=== PATIENT | female | born 1955 | race Caucasian/White ===

== ENCOUNTER 2017-06-03 21:25 | Inpatient (IN) | payer MEDICARE, OTHER ==
[~2017-06-03] VITALS: Ht 160 cm; Wt 62.6 kg
[2017-06-03 21:59] LABS: BASOPHILS # (AUTO) 0.1 K/uL (0.0-8.0); BASOPHILS % (AUTO) 1.3 % (0.0-2.0); EOSINOPHILS # (AUTO) 0.3 K/uL (0.0-0.7); HEMATOCRIT 35.9 % (31.2-41.9); HEMOGLOBIN 12.5 g/dL (10.9-14.3); LYMPHOCYTES # (AUTO) 1.8 K/uL (20.0-40.0); LYMPHOCYTES % (AUTO) 19.4 % (20.5-51.5); MEAN CORPUSCULAR HGB CONC 35 g/dL (32.3-35.6); MEAN CORPUSCULAR VOLUME 85.8 fL (75.5-95.3); MONOCYTES # (AUTO) 0.7 K/uL (2.0-10.0); MONOCYTES % (AUTO) 7.1 % (0.0-11.0); NEUTROPHILS # (AUTO) 6.3 K/uL (1.8-8.9); NEUTROPHILS % (AUTO) 69.2 % (38.5-71.5); PLATELET COUNT (AUTO) 293 K/uL (179-408); RED BLOOD CELL COUNT(AUTO) 4.18 MIL/uL (3.63-4.92); WHITE BLOOD COUNT (AUTO) 9.1 K/uL (3.8-11.8)
[2017-06-03] MEDS ORDERED: SODI100010 PO (22:03)
[2017-06-03] MEDS ORDERED: AMLO5TAB2 PO (22:03)
[2017-06-03] MEDS ORDERED: FERR325T24 PO (22:03)
[2017-06-03] MEDS ORDERED: PANT40TA2 PO (22:03)
[2017-06-03] MEDS ORDERED: MULT-213 PO (22:04)
[2017-06-03] MEDS ORDERED: ACET325T53 PO (22:04)
[2017-06-03] MEDS ORDERED: SENN-167 PO (22:04)
[2017-06-03] MEDS ORDERED: OLAN15TA3 PO (22:04)
[2017-06-03] MEDS ORDERED: BISA10SU12 RC (22:04)
[2017-06-03] MEDS ORDERED: LEVO100T10 PO (22:04)
[2017-06-03] MEDS ORDERED: DIVA500T4 PO (22:04)
[2017-06-03] MEDS ORDERED: LEVE500T9 PO (22:04)
[2017-06-03] MEDS ORDERED: NA P133E RC (22:04)
[2017-06-03] MEDS ORDERED: HYDR-3326 PO (22:04)
[2017-06-03] MEDS ORDERED: DOCU100T2 PO (22:04)
[2017-06-03] MEDS ORDERED: ASCO500T9 PO (22:04)
[2017-06-03] MEDS ORDERED: MAGN400O6 PO (22:04)
[2017-06-03] MEDS ORDERED: METF500T6 PO (22:04)
[2017-06-03] MEDS ORDERED: LISI-603 PO (22:04)
[2017-06-03] MEDS ORDERED: BLOO-140 IN (22:04)
[2017-06-03 22:06] LABS: *AMPHETAMINE, URINE NEGATIVE (NEGATIVE); *BARBITURATE, URINE NEGATIVE (NEGATIVE); *CANNABINOID, URINE NEGATIVE (NEGATIVE); *COCCAINE, URINE NEGATIVE (NEGATIVE); *OPIATE, URINE NEGATIVE (NEGATIVE); *PHENCYCLIDINE SCREEN,URINE NEGATIVE (NEGATIVE)
[2017-06-03 22:21] LABS: ETHANOL < 3 MG/DL (0-0)
[2017-06-03 22:27] LABS: ALANINE AMINOTRANSFERASE 14 U/L (14-59); ALKALINE PHOSPHATASE 125 U/L (50-136); ASPARTATE AMINOTRANSFERASE 10 U/L (15-37); BILIRUBIN,DIRECT 0.1 mg/dL (0.0-0.2); BILIRUBIN,TOTAL 0.3 mg/dL (0.2-1.0); CARBON DIOXIDE 28 mmol/L (21-32); CHLORIDE 95 mmol/L (98-107); CREATININE 0.7 mg/dL (0.6-1.3); GLUCOSE 98 mg/dL (74-106); POTASSIUM 4.1 mmol/L (3.5-5.1)
[2017-06-03 22:28] LABS: ACETAMINOPHEN < 2.0 ug/mL (10-30)
[2017-06-03 22:32] LABS: THYROID STIMULATING HORMONE 11.699 mIU/mL (0.358-3.740)
[2017-06-03 22:35] LABS: UREA NITROGEN, BLOOD 14 mg/dL (7-18)
[2017-06-03] MEDS ORDERED: OLANZAPINE 5 MG TABLET PO ONE (23:00)
[2017-06-03] MEDS ORDERED: OLANZAPINE 5 MG TABLET ONE (23:01)
--- NOTE | 2017-06-03 23:08 | NUR ---
PT IN BED WATCHING TV. PT GETTING AGITATED BECAUSE WE HAVE NO CIGARETTES OR "SMOKING BREAKS." PT HAS HAD TO BE REDIRECTED BACK TO BED SEVERAL TIMES. MADE AWARE. AT THIS TIME PT HAS BEEN MEDICALLY CLEARED. CURRENTLY WAITING FOR PSYCH EVAL.
--- NOTE | 2017-06-03 23:24 | NUR ---
MERCERIZER AT BEDSIDE CONDUCTING PSYCH EVAL
--- NOTE | 2017-06-04 00:05 | NUR ---
PT IN BED. PT CRYING AND SCREAMING "DADDY" REPEATEDLY. MADE AWARE.
[2017-06-04] MEDS ORDERED: LORAZEPAM 2 MG/1 ML VIAL IM ONE ×3 (00:15→11:30)
[2017-06-04] MEDS ORDERED: LORAZEPAM 2 MG/1 ML VIAL ONE (00:16)
[2017-06-04 01:00] VITALS: BP 97/62
[2017-06-04] MEDS ORDERED: HYDROCODONE/APAP 5-325MG TABLET PO PRN (01:00)
[2017-06-04] MEDS ORDERED: FLEET ENEMA 133 ML BOTTLE RC PRN (01:00)
--- NOTE | 2017-06-04 01:15 | NUR ---
Pt. admitted to MHU overflow, under care of Dr. GAMING/BALAJI Bradley List completed MRSA done Physician's Order Sheet done
[2017-06-04] MEDS ORDERED: HALOPERIDOL LACTATE 5 MG/1 ML VIAL IM ONE (01:45)
[2017-06-04] MEDS ORDERED: diphenhydrAMINE 50 MG/1 ML VIAL IM ONE (01:45)
[2017-06-04] MEDS ORDERED: MAG HYDROX/AL HYDROX/SIMETH 30 ML LIQUID UDC PO PRN (02:00)
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
[2017-06-04] MEDS: LEVOTHYROXINE SODIUM 100 MCG TABLET PO SCH ×2 (06:52→07:30)
[2017-06-04] MEDS: PANTOPRAZOLE SODIUM 40 MG TABLET.DR PO SCH ×2 (06:52→07:30)
--- NOTE | 2017-06-04 06:52 | NUR ---
Protonix and Levothyroxine given as ordered.
[2017-06-04] MEDS: SODIUM CHLORIDE 1,000 MG TABLET PO SCH ×3 (08:32→17:56)
[2017-06-04] MEDS: AMLODIPINE 5 MG TABLET PO SCH (08:32)
[2017-06-04] MEDS: METFORMIN HCL 500 MG TABLET PO SCH ×2 (08:32→17:32)
[2017-06-04] MEDS: LEVETIRACETAM 500 MG TABLET PO SCH ×2 (08:32→17:32)
[2017-06-04] MEDS: CLONAZEPAM 0.5 MG TABLET PO PRN (08:32)
[2017-06-04] MEDS: FERROUS SULFATE 325 MG TABEC PO SCH (08:33)
[2017-06-04] MEDS: LISINOPRIL 20 MG TABLET PO SCH (08:33)
[2017-06-04] MEDS ORDERED: NICOTINE 14 MG/24HR PATCH TD SCH (09:00)
[2017-06-04] MEDS ORDERED: PANTOPRAZOLE SODIUM 40 MG TABLET.DR PO SCH (09:00)
[2017-06-04] MEDS ORDERED: LEVOTHYROXINE SODIUM 100 MCG TABLET PO SCH (09:00)
--- NOTE | 2017-06-04 10:30 | NUR ---
Patient was noted screaming at staff, asking to go out and smoke, patient laying on the floor and naked. PRN Klonopin was given at 0832, no other PRN anti anxiety ordered. Dr. Bell in the unit, made him aware. Dr. Coley was called, left a message. Awaiting for call back. Will continue to monitor.
[2017-06-04 10:52] VITALS: BP 120/72
[2017-06-04] MEDS ORDERED: OLANZAPINE 10 MG VIAL IM ONE (11:30)
--- NOTE | 2017-06-04 11:30 | NUR ---
Dr. Coley was called and notified of patient's worsening behavior, screaming, yelling and laying on the floor naked, received orders to give x1 Ativan 1mg IM and Zyprexa 5mg IM x1, noted and carried out.
[2017-06-04 12:34] LABS: *BILIRUBIN,URIN NEGATIVE (NEGATIVE); *BLOOD, URINE NEGATIVE (NEGATIVE); *CLARITY,URINE CLEAR (CLEAR); *COLOR,URINE YELLOW (YELLOW); *KETONES,URINE NEGATIVE (NEGATIVE); *PROTEIN,URINE NEGATIVE (NEGATIVE); *UROBILINOGEN,URINE 0.2 E.U./dl (NORMAL); LEUKOCYTE ESTERASE ,URINE NEGATIVE (NEGATIVE); NITRITE, URINE NEGATIVE (NEGATIVE); UGLUCOSE NEGATIVE (NEGATIVE)
[2017-06-04 13:31] LABS: BACTERIA,URINE NONE SEEN /HPF (NONE SEEN); RBC,URINE 0-3 /HPF (0-3); SQUAMOUS EPITHELIAL CELL,UR FEW /HPF (NONE SEEN); WBC,URINE 0-3 /HPF (0-3)
--- NOTE | 2017-06-04 14:20 | NUR ---
Patient was transferred to MHU, room 139-A, via wheelchair, in stable condition. Patient is calm and cooperative at the moment. Report given to RADHA Carter.
--- NOTE | 2017-06-04 14:30 | NUR ---
Rec'd pt up in w/c, awake, A&O x1. Able to verbalize simple needs. Repeatedly asking to go smoke outside. Reoriented pt on facility rules and privileges. Pt would verbalize understanding but then forget and ask again to smoke outside repeatedly. 1:1 sitter at side for safety. VS: 98.4 78 20 113/67 0/10. On RA, no SOB noted. Oriented pt to the unit, her room, and her roommate. Agreeable at this time. Cooperative at this time. Will continue to monitor for change.
[2017-06-04] MEDS: DIVALPROEX 500 MG TABLET.DR PO SCH (17:32)
[2017-06-04] MEDS: OLANZAPINE 5 MG TABLET PO SCH (17:32)
[2017-06-04 20:21] VITALS: BP 101/61
[2017-06-04] MEDS: SENNOSIDES 1 TABLET PO SCH (21:07)
[2017-06-04] MEDS: TEMAZEPAM 7.5 MG CAPSULE PO PRN (21:10)
--- NOTE | 2017-06-04 23:00 | NUR ---
RECEIVED Pt IN BED, SLEEPING BUT EASY TO AROUSE. Pt HAS A 1:1 SITTER AT BEDSIDE FOR SAFETY. Pt RESPONSES TO NAME BUT IS FORGETFUL AND SLIGHTLY CONFUSED. COMPLIANT WITH CARE STAFF AND TOOK NIGHT MEDS. Pt WAS SLEEPY AND DID NOT WANT TO ANSWER TOO MANY QUESTIONS. Pt REQUESTED AND WAS GIVEN RESTORIL PO PRN. WILL CONTINUE TO CLOSELY MONITOR Pt BEHAVIOR THROUGHOUT SHIFT.
[2017-06-05] MEDS: PANTOPRAZOLE SODIUM 40 MG TABLET.DR PO SCH (06:37)
[2017-06-05] MEDS: LEVOTHYROXINE SODIUM 100 MCG TABLET PO SCH (06:37)
--- NOTE | 2017-06-05 06:50 | NUR ---
Pt slept throughout the shift. Shows no signs of distress. Prescribed medication given and pt tolerated it well. Sitter at bedside. Safety and comfort provided. All needs are met. Will endorse to dayshift nurse to closely monitor the patients behavior.
[2017-06-05 07:30] VITALS: BP 96/66
[2017-06-05] MEDS ORDERED: NICOTINE 14 MG/24HR PATCH TD SCH (09:00)
[2017-06-05] MEDS: NICOTINE 21 MG/24HR PATCH TD SCH (09:00)
[2017-06-05] MEDS: AMLODIPINE 5 MG TABLET PO SCH (09:00)
[2017-06-05] MEDS: LISINOPRIL 20 MG TABLET PO SCH (09:00)
[2017-06-05] MEDS: FERROUS SULFATE 325 MG TABEC PO SCH (09:00)
--- NOTE | 2017-06-05 09:00 | NUR ---
LISINOPRIL AND AMLODIPINE HELD. BP 94/63. CONTINUE TO MONITOR PT.
[2017-06-05] MEDS: DIVALPROEX 500 MG TABLET.DR PO SCH ×3 (09:34→16:04)
[2017-06-05] MEDS: OLANZAPINE 5 MG TABLET PO SCH ×2 (09:34→16:04)
[2017-06-05] MEDS: METFORMIN HCL 500 MG TABLET PO SCH ×2 (09:34→16:04)
[2017-06-05] MEDS: SODIUM CHLORIDE 1,000 MG TABLET PO SCH ×3 (09:34→16:05)
[2017-06-05] MEDS: LEVETIRACETAM 500 MG TABLET PO SCH ×2 (09:35→16:04)
[2017-06-05 15:17] VITALS: BP 101/56
[2017-06-05] MEDS: SENNOSIDES 1 TABLET PO SCH (20:31)
[2017-06-05 20:54] VITALS: BP 104/61
--- NOTE | 2017-06-05 21:52 | NUR ---
RECEIVED PT SITTING UP IN HER WHEELCHAIR IN THE DAY ROOM. SHE IS NOTED A/O X 1. ABLE TO MAKE HER NEEDS KNOWN. PLEASANT AND COOPERATIVE AT THIS TIME. DENIES SI/HI. DENIES VA/AH. POOR INSIGHT INTO THE REASON FOR HER ADMISSION TO MHU. SAFETY EMPHASIS. ROOM FREE FROM CLUTTER, WELL LIT AND FREQUENT HEAD CHECKS. WILL CONTINUE TO MONITOR.
[2017-06-05] MEDS: TEMAZEPAM 7.5 MG CAPSULE PO PRN (23:05)
--- NOTE | 2017-06-05 23:05 | NUR ---
PATIENT NOTED AWAKE IN THE DAY ROOM. SHE REQUESTED A "SLEEPING PILL." RESTORIL 7.5MG PO PRN WAS GIVEN FOR INSOMNIA PER NURSE ASSESSMENT AND PATIENT REQUEST. WILL CONTINUE TO MONITOR CLOSELY.
[2017-06-05 23:11] VITALS: BP 128/88
--- NOTE | 2017-06-06 00:30 | NUR ---
PATIENT NOTED ASLEEP IN HER BED. WILL CONTINUE TO MONITOR
[2017-06-06] MEDS: PANTOPRAZOLE SODIUM 40 MG TABLET.DR PO SCH (06:33)
[2017-06-06] MEDS: LEVOTHYROXINE SODIUM 100 MCG TABLET PO SCH (06:33)
[2017-06-06 07:30] VITALS: BP 93/63
[2017-06-06] MEDS: LISINOPRIL 20 MG TABLET PO SCH (09:00)
[2017-06-06] MEDS: LEVETIRACETAM 500 MG TABLET PO SCH ×2 (09:00→17:42)
[2017-06-06] MEDS: FERROUS SULFATE 325 MG TABEC PO SCH ×2 (09:00→09:18)
[2017-06-06] MEDS: AMLODIPINE 5 MG TABLET PO SCH (09:00)
[2017-06-06] MEDS: SODIUM CHLORIDE 1,000 MG TABLET PO SCH ×3 (09:17→17:43)
[2017-06-06] MEDS: CLONAZEPAM 0.5 MG TABLET PO PRN ×2 (09:17→20:06)
[2017-06-06] MEDS: OLANZAPINE 5 MG TABLET PO SCH ×2 (09:17→17:42)
[2017-06-06] MEDS: METFORMIN HCL 500 MG TABLET PO SCH ×2 (09:18→17:42)
[2017-06-06] MEDS: DIVALPROEX 500 MG TABLET.DR PO SCH ×3 (09:18→17:41)
[2017-06-06] MEDS: NICOTINE 21 MG/24HR PATCH TD SCH (09:21)
[2017-06-06 14:51] VITALS: BP 110/78
--- NOTE | 2017-06-06 15:04 | NUR ---
PATIENT VERY CONFUSED AND PARANOID PATIENT IS REDIECTABLE POOR INSIGHT AND NO PLAN DOES SHE HAVE
[2017-06-06] MEDS: MAGNESIUM HYDROXIDE 30 ML LIQUID UDC PO PRN (17:47)
[2017-06-06 20:00] VITALS: BP 135/90
[2017-06-06] MEDS: SENNOSIDES 1 TABLET PO SCH (20:06)
--- NOTE | 2017-06-06 20:15 | NUR ---
PATIENT NOTED ANXIOUS HYPERVERBAL, FIXED ON TALKING TO THE MAN WHO IS GOING TO DISCHARGE HER.. MULTIPLE REDIRECTION GIVEN. KLONOPIN 0.5MG PO PRN WAS GIVEN. WILL CONTINUE TO MONITOR.
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
[2017-06-06] MEDS: TEMAZEPAM 7.5 MG CAPSULE PO PRN (21:23)
--- NOTE | 2017-06-06 21:30 | NUR ---
PATIENT NOTED LESS ANXIOUS, HOWEVER, UNABLE TO FALL SLEEP. RESTORIL 7.5MG PO PRN WAS GIVEN FOR INSOMNIA. WILL CONTINUE TO MONITOR CLOSELY.
--- NOTE | 2017-06-07 05:54 | NUR ---
PATIENT SLEPT FOR APPROX 6HRS THROUGH THE NIGHT. SHE IS NOTED LESS PREOCCUPIED ABOUT HER DISCHARGED. CONTINUE COMPLIANT WITH MEDICATION REGIMENT.
[2017-06-07] MEDS: LEVOTHYROXINE SODIUM 100 MCG TABLET PO SCH (06:42)
[2017-06-07] MEDS: PANTOPRAZOLE SODIUM 40 MG TABLET.DR PO SCH (06:42)
[2017-06-07 07:30] VITALS: BP 133/74
[2017-06-07] MEDS: SODIUM CHLORIDE 1,000 MG TABLET PO SCH ×3 (08:02→16:24)
[2017-06-07] MEDS: NICOTINE 21 MG/24HR PATCH TD SCH (08:03)
[2017-06-07] MEDS: METFORMIN HCL 500 MG TABLET PO SCH ×2 (08:03→16:22)
[2017-06-07] MEDS: FERROUS SULFATE 325 MG TABEC PO SCH ×2 (08:03→08:13)
[2017-06-07] MEDS: OLANZAPINE 5 MG TABLET PO SCH ×2 (08:03→16:22)
[2017-06-07] MEDS: DIVALPROEX 500 MG TABLET.DR PO SCH ×3 (08:03→16:22)
[2017-06-07] MEDS: LEVETIRACETAM 500 MG TABLET PO SCH ×2 (08:03→16:22)
[2017-06-07] MEDS: LISINOPRIL 20 MG TABLET PO SCH (08:04)
[2017-06-07] MEDS: AMLODIPINE 5 MG TABLET PO SCH (08:04)
--- NOTE | 2017-06-07 08:13 | NUR ---
PATIENT ALLOWED THE PLACEMENT OF NICOTINE PATCH HOWEVER STATES SHE HAS NO INTENTION TO QUIT SMOKING.
--- NOTE | 2017-06-07 08:13 | NUR ---
PATIENT REFUSED IRON MEDICATION. STATES THAT IT CONSTIPATES HER. OFFERED MOM FOR CONSTIPATION WITH MEDICATION. SHE STILL REFUSED MEDICATION
--- NOTE | 2017-06-07 08:23 | NUR ---
PATIENT GOING OUT TO THE ACTIVITY ROOM IN WHEELCHAIR. BREAKFAST WAS EATEN IN ROOM.
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
--- NOTE | 2017-06-07 12:19 | NUR ---
Initial DC Plan: Patient currently resides at [facility] [[address] [place] [address]; ]. TRICIA spoke with Humberto from [facility] who stated patient can return to the facility upon discharge. SW will follow up with MD and patient to discuss most appropriate discharge plans. SW will form a safe and proper discharge.
--- NOTE | 2017-06-07 12:29 | NUR ---
Firearms Reporting: TRICIA submitted Mental Health Report to [facility] on 06/07.
--- NOTE | 2017-06-07 12:45 | NUR ---
ONLY ATE JELLO FROM HER LUNCH TRAY. DID NOT WANT THE REST OF THE MEAL. OFFERED IF SHE WANTED TO ORDER SOMETHING ELSE TO EAT SHE SAID NO JUST THAT SHE WANTED SOME TEA OR LEMON JUICE.
[2017-06-07 15:16] VITALS: BP 109/73
--- NOTE | 2017-06-07 20:00 | NUR ---
RECEIVED PT.UP IN WHEEL CHAIR, SLIGHTLY ANXIOUS. TALKED & REDIRECTED PT.WANTS HER SLEEPING EARLY.
[2017-06-07 21:01] VITALS: BP 97/74
[2017-06-07] MEDS: TEMAZEPAM 7.5 MG CAPSULE PO PRN (21:09)
[2017-06-07] MEDS: SENNOSIDES 1 TABLET PO SCH (21:09)
[2017-06-07] MEDS: ACETAMINOPHEN 325 MG TABLET PO PRN (21:11)
--- NOTE | 2017-06-08 06:30 | NUR ---
PT. SLEPT APPROX 5HRS. UP IN THE HALLWAY ON WHEELCHAIR. PT. SEEMS PLEASANT THIS TIME.
[2017-06-08] MEDS: PANTOPRAZOLE SODIUM 40 MG TABLET.DR PO SCH (06:45)
[2017-06-08] MEDS: LEVOTHYROXINE SODIUM 100 MCG TABLET PO SCH (06:45)
[2017-06-08 07:30] VITALS: BP 110/67
--- NOTE | 2017-06-08 07:41 | NUR ---
PATIENT IS WANDERING IN HALLWAY IN HER WHEELCHAIR.
[2017-06-08] MEDS: DIVALPROEX 500 MG TABLET.DR PO SCH ×3 (08:05→16:12)
[2017-06-08] MEDS: SODIUM CHLORIDE 1,000 MG TABLET PO SCH ×3 (08:05→16:11)
[2017-06-08] MEDS: LEVETIRACETAM 500 MG TABLET PO SCH ×2 (08:06→16:12)
[2017-06-08] MEDS: NICOTINE 21 MG/24HR PATCH TD SCH (08:06)
[2017-06-08] MEDS: OLANZAPINE 5 MG TABLET PO SCH ×2 (08:06→16:12)
[2017-06-08] MEDS: METFORMIN HCL 500 MG TABLET PO SCH ×2 (08:06→16:11)
[2017-06-08] MEDS: LISINOPRIL 20 MG TABLET PO SCH (08:07)
[2017-06-08] MEDS: AMLODIPINE 5 MG TABLET PO SCH (08:07)
[2017-06-08] MEDS: FERROUS SULFATE 325 MG TABEC PO SCH ×2 (08:07→08:17)
--- NOTE | 2017-06-08 08:50 | NUR ---
PATIENT WAS BECOMING AGITATED AND WHEN SOFT WORK WRAPPER EXAMINER MENTIONED SHE IS WORKING ON GETTING HER HOME SHE BECAME HAPPY STOPPED CRYING AND REPEATEDLY ASKING WHEN SHE WAS GOING TO GO HOME.
--- NOTE | 2017-06-08 08:54 | NUR ---
DC Note: Patient will be discharged to [facility] ([facility] ([place], [place] [ [address] [place] [address]; ] via ambulance. TRICIA spoke with Humberto from [facility] to confirm discharge plans. Patient is aware and agreeable to discharge plans. Patient does not have family or friends to contact regarding discharge plans. Patient will follow up with Dr. Noel (Manufacturing Engineering Technician) and Dr. Rosa (Psychiatrist) at the facility. Patient was provided smoking cessation referrals for [employer] [facility] [employer] [phone] and [employer] [phone].
[2017-06-08] MEDS: CLONAZEPAM 0.5 MG TABLET PO PRN ×2 (10:15→17:09)
[2017-06-08 15:00] VITALS: BP 110/64
[2017-06-08] MEDS: MAGNESIUM HYDROXIDE 30 ML LIQUID UDC PO PRN (17:57)
--- NOTE | 2017-06-08 19:35 | NUR ---
PER REPORT, FROM DAYSHIFT, PT IS SCHEDULED TO BE PICKED UP BY AMBULANCE AT 1930.
--- NOTE | 2017-06-08 19:40 | NUR ---
pt at the nursing station, anxious, asking what time she is leaving and why the transportation to the new facility has not arrived. I Called the ambulance to follow up with the ETA, per ambulance staff, #[phone] was placed on by RADHA HORAN day shift. The current ETA IS 2300 PER Ambulance staff.
--- NOTE | 2017-06-08 19:45 | NUR ---
I CALLED [facility] AND SPOKE TO JAZLYN, RN [phone] WHO IS AWARE AND EXPECTING THE PT, PER JAZLYN, ''THEY WILL NOT ACCEPT THE PT AFTER 2100- ACCORDING TO HIS DON BECAUSE THEY DO NOT HAVE RN 24 HOURS AND ALSO MEDICATION AVAILABILITY". I CALLED AND LEFT MESSAGE FOR MECCA KIRK LCSW. WAITING FOR A CALL BACK. ALSO CALLED BENJAMIN JAIRON HARRIS TO LET HER KNOW THE CURRENT SITUATION.
[2017-06-08 20:00] VITALS: BP 111/75
[2017-06-08] MEDS: SENNOSIDES 1 TABLET PO SCH (20:17)
[2017-06-08] MEDS: TEMAZEPAM 7.5 MG CAPSULE PO PRN (21:06)
[2017-06-08] MEDS: ACETAMINOPHEN 325 MG TABLET PO PRN (21:06)
--- NOTE | 2017-06-08 21:07 | NUR ---
GPS: PATIENT C/O INSOMNIA. RESTORIL 7.5 MG PO GIVEN.
--- NOTE | 2017-06-08 21:07 | NUR ---
GPS: PATIENT C/O GEN: PAIN.TYLENOL 650 MG PO GIVEN.
--- NOTE | 2017-06-08 21:08 | NUR ---
GPS: PATIENT C/O GEN: PAIN.TYLENOL 650 MG PO GIVEN FOR PAIN.
--- NOTE | 2017-06-08 21:15 | NUR ---
[facility]SP[facility] OUTSIDE THE UNIT TO TRANSPORT PT TO [facility]. I CALLED THE FACILITY TO CHECK IF THEY CAN STILL ACCEPT THE PT TONIGHT AFTER 2100, PER YSSA CHARGE NURSE AT [facility], " THEY CANNOT PER THEIR DON INSTRUCTION", BUT WILL TAKE THE PT TOMORROW MORNING. WENT OUTSIDE TO TALK TO THE TRANSPORT AGENTS THAT WE WILL RESCHEDULE FOR ADALBERTO MORNING. BOTH KIMBERLY DE LA O AND JOSE LUIS CARRERA DIRCTOR AWARE. DR GAMING ALSO NOTIFIED.
--- NOTE | 2017-06-08 21:35 | NUR ---
CALLED [phone] AND SPOKE TO ZULEIMA TO RESCHEDULE TO [facility] AT 9-9:30 AM , 06/09/17, SUNDAY MORNING, TRIP #[id number].
--- NOTE | 2017-06-08 22:07 | NUR ---
GPS: PATIENT IS SLEEPING EYE CLOSE. PRN EFFECTIVE.
--- NOTE | 2017-06-08 22:07 | NUR ---
GPS: PATIENT STATED I AM FEELING BETTER NOW. PRN EFFECTIVE FOR PAIN.
--- NOTE | 2017-06-09 06:19 | NUR ---
GPS: REMAIN CALM AND COOPERATIVE WITH MEDICATIONS AND CARE. SLEPT 7:30 HRS THROUGH THE NIGHT.NO AGITATION NOTED AT THIS TIME. PATIENT ABLE TO TRANSFER HER SELF FROM BED W/C.CONTINUE MONITORING FOR SAFETY.
[2017-06-09] MEDS: LEVOTHYROXINE SODIUM 100 MCG TABLET PO SCH (06:35)
[2017-06-09] MEDS: PANTOPRAZOLE SODIUM 40 MG TABLET.DR PO SCH (06:35)
[2017-06-09 07:30] VITALS: BP 116/71
[2017-06-09] MEDS: FERROUS SULFATE 325 MG TABEC PO SCH (08:12)
[2017-06-09] MEDS: LEVETIRACETAM 500 MG TABLET PO SCH (08:12)
[2017-06-09] MEDS: LISINOPRIL 20 MG TABLET PO SCH (08:12)
[2017-06-09] MEDS: DIVALPROEX 500 MG TABLET.DR PO SCH (08:12)
[2017-06-09 08:13] VITALS: BP 116/71
[2017-06-09] MEDS: METFORMIN HCL 500 MG TABLET PO SCH (08:13)
[2017-06-09] MEDS: SODIUM CHLORIDE 1,000 MG TABLET PO SCH (08:13)
[2017-06-09] MEDS: AMLODIPINE 5 MG TABLET PO SCH (08:13)
[2017-06-09] MEDS: OLANZAPINE 5 MG TABLET PO SCH (08:13)
[2017-06-09] MEDS: NICOTINE 21 MG/24HR PATCH TD SCH (08:14)
--- NOTE | 2017-06-09 10:48 | NUR ---
d/c orders received noted and carried out,pt left the facilty via ambulances in stable condition .d/c hold per md orders
== END 2017-06-09 11:26 | DRG 885 ==
LOC: ER 21:26 → GPSOV 06-04 00:47 → GPS 06-04 14:30
PROVIDERS: ADMIT Psychiatry & Neurology Psychiatry; ATTEND Nurse Practitioner Acute Care
DX: F25.9 Schizoaffective disorder, unspecified (principal); G40.909 Epilepsy, unspecified, not intractable, without status epilepticus; D63.8 Anemia in other chronic diseases classified elsewhere; E11.9 Type 2 diabetes mellitus without complications; E78.5 Hyperlipidemia, unspecified; E03.9 Hypothyroidism, unspecified; Z91.14 Patient's other noncompliance with medication regimen; Z79.4 Long term (current) use of insulin; Z99.3 Dependence on wheelchair; Z79.899 Other long term (current) drug therapy; R46.89 Other symptoms and signs involving appearance and behavior
CPT/HCPCS: 36415; 80164; 80307; 84443; 85025; 93005; A4663; G0480; G0480-TC; J1200; J1630; J2060; J2358

== ENCOUNTER 2018-08-24 18:04 | Inpatient (IN) | payer MEDICARE, OTHER ==
[~2018-08-24] VITALS: Ht 154.9 cm; Wt 65.3 kg
[~2018-08-24 18:04] MED LIST: ACET325T53 PO; AMLO5TAB9 PO; ASCO500T9 PO; BISA10SU12 RC; BLOO-140 IN; DIVA500T4 PO; DOCU100T2 PO; FERR325T24 PO; HYDR-3326 PO; LEVE500T9 PO; LEVO100T10 PO; LISI-603 PO; MAGN400O6 PO; METF-440 PO; MULT-213 PO; NA P133E RC; OLAN15TA3 PO; PANT40TA2 PO; SENN-168 PO; SODI100037 PO
[2018-08-24] MEDS ORDERED: MAG HYDROX/AL HYDROX/SIMETH 30 ML LIQUID UDC PO PRN (22:15)
[2018-08-24] MEDS ORDERED: MAGNESIUM HYDROXIDE 30 ML LIQUID UDC PO PRN (22:15)
[2018-08-24] MEDS: TEMAZEPAM 7.5 MG CAPSULE PO PRN (23:17)
[2018-08-24 23:48] VITALS: BP 126/78
[2018-08-25 02:55] VITALS: BP 115/78
[2018-08-25 07:30] VITALS: BP 97/56
[2018-08-25] MEDS: LEVOTHYROXINE SODIUM 100 MCG TABLET PO SCH (10:15)
[2018-08-25] MEDS: LEVETIRACETAM 500 MG TABLET PO SCH ×2 (10:41→20:02)
[2018-08-25] MEDS: ASPIRIN 81 MG TAB.CHEW PO SCH (10:41)
[2018-08-25] MEDS: METFORMIN HCL 500 MG TABLET PO SCH ×2 (10:41→17:10)
[2018-08-25] MEDS: MULTIVITAMINS,THERAPEUTIC TABLET PO SCH (10:41)
[2018-08-25] MEDS: FERROUS SULFATE 325 MG TABEC PO SCH (10:41)
[2018-08-25] MEDS: OLANZAPINE 5 MG TABLET PO SCH ×2 (13:24→20:02)
[2018-08-25] MEDS: DIVALPROEX 250 MG TABLET.DR PO SCH ×2 (13:24→16:37)
[2018-08-25 15:01] VITALS: BP 117/77
[2018-08-25] MEDS: ASCORBIC ACID 500 MG TABLET PO SCH (16:26)
[2018-08-25 19:56] VITALS: BP 123/81
[2018-08-25] MEDS: ATORVASTATIN 40 MG TABLET PO SCH (20:02)
[2018-08-25] MEDS: SENNOSIDES 1 TABLET PO SCH (20:02)
[2018-08-26] MEDS: LEVOTHYROXINE SODIUM 100 MCG TABLET PO SCH ×2 (06:00→15:09)
[2018-08-26] MEDS: PANTOPRAZOLE SODIUM 40 MG TABLET.DR PO SCH (06:04)
[2018-08-26 07:10] LABS: CREATININE 0.7 mg/dL (0.6-1.3); MAGNESIUM 1.6 mg/dL (1.8-2.4); PHOSPHOROUS 3.4 mg/dL (2.5-4.9)
[2018-08-26 07:12] LABS: BASOPHILS % (AUTO) 0.7 % (0.0-2.0); EOSINOPHILS # (AUTO) 0.3 K/uL (0.0-0.7); EOSINOPHILS % (AUTO) 3.9 % (0.0-7.0); HEMATOCRIT 37.9 % (31.2-41.9); HEMOGLOBIN 12.9 g/dL (10.9-14.3); LYMPHOCYTES # (AUTO) 2.2 K/uL (20.0-40.0); LYMPHOCYTES % (AUTO) 31.9 % (20.5-51.5); MEAN CORPUSCULAR HEMOGLOBIN 29.7 uug (24.7-32.8); MEAN CORPUSCULAR HGB CONC 34 g/dL (32.3-35.6); MEAN CORPUSCULAR VOLUME 87.2 fL (75.5-95.3); MONOCYTES # (AUTO) 0.6 K/uL (2.0-10.0); MONOCYTES % (AUTO) 9.1 % (0.0-11.0); NEUTROPHILS # (AUTO) 3.8 K/uL (1.8-8.9); NEUTROPHILS % (AUTO) 54.4 % (38.5-71.5); PLATELET COUNT (AUTO) 251 K/uL (179-408); RED BLOOD CELL COUNT(AUTO) 4.35 MIL/uL (3.63-4.92)
[2018-08-26 07:30] VITALS: BP 146/62
[2018-08-26] MEDS: LEVETIRACETAM 500 MG TABLET PO SCH ×2 (09:00→20:01)
[2018-08-26] MEDS: DIVALPROEX 250 MG TABLET.DR PO SCH ×2 (09:00→13:00)
[2018-08-26] MEDS: ASCORBIC ACID 500 MG TABLET PO SCH ×2 (09:07→17:28)
[2018-08-26] MEDS: ASPIRIN 81 MG TAB.CHEW PO SCH (09:07)
[2018-08-26] MEDS: FERROUS SULFATE 325 MG TABEC PO SCH (09:07)
[2018-08-26] MEDS: MULTIVITAMINS,THERAPEUTIC TABLET PO SCH (09:07)
[2018-08-26] MEDS: METFORMIN HCL 500 MG TABLET PO SCH ×2 (09:07→17:28)
[2018-08-26] MEDS: OLANZAPINE 5 MG TABLET PO SCH ×3 (09:07→17:28)
[2018-08-26] MEDS ORDERED: MAGNESIUM OXIDE 400 MG TABLET PO ONE (10:00)
[2018-08-26] MEDS ORDERED: OLANZAPINE 10 MG VIAL IM ONE (10:00)
[2018-08-26] MEDS: LORAZEPAM 0.5 MG TABLET PO PRN ×2 (10:29→19:51)
[2018-08-26 15:08] VITALS: BP 115/74
[2018-08-26] MEDS: DIVALPROEX 500 MG TABLET.DR PO SCH (17:00)
[2018-08-26 20:00] VITALS: BP 122/74
[2018-08-26] MEDS: ATORVASTATIN 40 MG TABLET PO SCH (20:01)
[2018-08-26] MEDS: SENNOSIDES 1 TABLET PO SCH (20:01)
[2018-08-26] MEDS: TEMAZEPAM 7.5 MG CAPSULE PO PRN (21:03)
[2018-08-27] MEDS: LORAZEPAM 0.5 MG TABLET PO PRN (03:07)
[2018-08-27] MEDS: PANTOPRAZOLE SODIUM 40 MG TABLET.DR PO SCH (06:13)
[2018-08-27] MEDS: LEVOTHYROXINE SODIUM 100 MCG TABLET PO SCH ×2 (06:13→09:28)
[2018-08-27 07:30] VITALS: BP 105/71
[2018-08-27] MEDS: DIVALPROEX 250 MG TABLET.DR PO SCH ×2 (08:00→12:34)
[2018-08-27] MEDS: ASCORBIC ACID 500 MG TABLET PO SCH ×2 (08:50→16:28)
[2018-08-27] MEDS: ASPIRIN 81 MG TAB.CHEW PO SCH (08:50)
[2018-08-27] MEDS: MULTIVITAMINS,THERAPEUTIC TABLET PO SCH (08:50)
[2018-08-27] MEDS: METFORMIN HCL 500 MG TABLET PO SCH ×2 (08:51→17:12)
[2018-08-27] MEDS: OLANZAPINE 5 MG TABLET PO SCH ×3 (08:51→16:28)
[2018-08-27] MEDS: FERROUS SULFATE 325 MG TABEC PO SCH (08:51)
[2018-08-27] MEDS: LEVETIRACETAM 500 MG TABLET PO SCH ×2 (08:52→20:41)
[2018-08-27 15:55] VITALS: BP 124/46
[2018-08-27] MEDS: DIVALPROEX 500 MG TABLET.DR PO SCH (16:28)
[2018-08-27] MEDS ORDERED: OLANZAPINE 5 MG TABLET PO ONE (18:15)
[2018-08-27] MEDS: ALPRAZOLAM 0.5 MG TABLET PO PRN (18:26)
[2018-08-27 19:58] VITALS: BP 127/79
[2018-08-27] MEDS: ATORVASTATIN 40 MG TABLET PO SCH (20:41)
[2018-08-27] MEDS: SENNOSIDES 1 TABLET PO SCH (20:42)
[2018-08-27] MEDS: TEMAZEPAM 7.5 MG CAPSULE PO PRN (22:20)
[2018-08-27] MEDS: ACETAMINOPHEN 325 MG TABLET PO PRN (23:34)
[2018-08-28] MEDS: ALPRAZOLAM 0.5 MG TABLET PO PRN ×3 (00:04→13:00)
[2018-08-28] MEDS: PANTOPRAZOLE SODIUM 40 MG TABLET.DR PO SCH (05:54)
[2018-08-28] MEDS: LEVOTHYROXINE SODIUM 100 MCG TABLET PO SCH (05:54)
[2018-08-28] MEDS ORDERED: LORAZEPAM 2 MG/1 ML VIAL IM ONE ×2 (07:00→08:30)
[2018-08-28] MEDS ORDERED: BENZTROPINE MESYLATE 2 MG/2 ML AMPUL IM ONE ×2 (07:00→08:30)
[2018-08-28] MEDS ORDERED: HALOPERIDOL LACTATE 5 MG/1 ML VIAL IM ONE ×2 (07:00→08:30)
[2018-08-28 07:59] VITALS: BP 131/73
[2018-08-28] MEDS ORDERED: OLANZAPINE 5 MG TABLET PO SCH ×2 (08:00→09:00)
[2018-08-28] MEDS: FERROUS SULFATE 325 MG TABEC PO SCH (08:03)
[2018-08-28] MEDS: ASPIRIN 81 MG TAB.CHEW PO SCH (08:03)
[2018-08-28] MEDS: METFORMIN HCL 500 MG TABLET PO SCH ×2 (08:03→18:00)
[2018-08-28] MEDS: DIVALPROEX 250 MG TABLET.DR PO SCH ×2 (08:03→13:00)
[2018-08-28] MEDS: MULTIVITAMINS,THERAPEUTIC TABLET PO SCH (08:03)
[2018-08-28] MEDS: ASCORBIC ACID 500 MG TABLET PO SCH ×2 (08:03→17:00)
[2018-08-28] MEDS: LEVETIRACETAM 500 MG TABLET PO SCH ×2 (08:03→21:00)
[2018-08-28 15:50] VITALS: BP 118/65
[2018-08-28] MEDS: HALOPERIDOL 5 MG TABLET PO SCH (17:00)
[2018-08-28] MEDS: OXCARBAZEPINE 150 MG TABLET PO SCH (17:00)
[2018-08-28] MEDS: ATORVASTATIN 40 MG TABLET PO SCH (21:00)
[2018-08-28] MEDS: SENNOSIDES 1 TABLET PO SCH (21:00)
[2018-08-29] MEDS: SENNOSIDES 1 TABLET PO SCH ×2 (00:23→21:00)
[2018-08-29] MEDS: TEMAZEPAM 7.5 MG CAPSULE PO PRN (00:23)
[2018-08-29] MEDS: ATORVASTATIN 40 MG TABLET PO SCH ×2 (00:24→21:00)
[2018-08-29] MEDS: PANTOPRAZOLE SODIUM 40 MG TABLET.DR PO SCH ×2 (06:32→06:41)
[2018-08-29] MEDS: LEVOTHYROXINE SODIUM 100 MCG TABLET PO SCH ×2 (06:32→06:41)
[2018-08-29 07:30] VITALS: BP 136/87
[2018-08-29] MEDS: ASPIRIN 81 MG TAB.CHEW PO SCH (08:53)
[2018-08-29] MEDS: MULTIVITAMINS,THERAPEUTIC TABLET PO SCH (08:53)
[2018-08-29] MEDS: OXCARBAZEPINE 150 MG TABLET PO SCH (08:53)
[2018-08-29] MEDS: METFORMIN HCL 500 MG TABLET PO SCH ×2 (08:53→17:45)
[2018-08-29] MEDS: FERROUS SULFATE 325 MG TABEC PO SCH (08:53)
[2018-08-29] MEDS: LEVETIRACETAM 500 MG TABLET PO SCH ×2 (08:53→21:00)
[2018-08-29] MEDS: HALOPERIDOL 5 MG TABLET PO SCH ×2 (08:53→17:00)
[2018-08-29] MEDS: ASCORBIC ACID 500 MG TABLET PO SCH ×2 (08:53→17:00)
[2018-08-29] MEDS: ALPRAZOLAM 0.5 MG TABLET PO PRN (09:59)
[2018-08-29] MEDS ORDERED: diphenhydrAMINE 50 MG/1 ML VIAL IM ONE (12:00)
[2018-08-29] MEDS ORDERED: HALOPERIDOL LACTATE 5 MG/1 ML VIAL IM ONE (12:00)
[2018-08-29] MEDS ORDERED: LORAZEPAM 2 MG/1 ML VIAL IM ONE (12:00)
[2018-08-29] MEDS: OXCARBAZEPINE 300 MG TABLET PO SCH (17:00)
[2018-08-29] MEDS ORDERED: OXCARBAZEPINE 150 MG TABLET PO SCH (17:00)
[2018-08-30] MEDS: LEVOTHYROXINE SODIUM 100 MCG TABLET PO SCH (06:24)
[2018-08-30] MEDS: PANTOPRAZOLE SODIUM 40 MG TABLET.DR PO SCH (06:24)
[2018-08-30 07:30] VITALS: BP 120/59
[2018-08-30] MEDS: LEVETIRACETAM 500 MG TABLET PO SCH ×2 (08:25→21:00)
[2018-08-30] MEDS: METFORMIN HCL 500 MG TABLET PO SCH ×2 (08:25→17:42)
[2018-08-30] MEDS: MULTIVITAMINS,THERAPEUTIC TABLET PO SCH (08:25)
[2018-08-30] MEDS: HALOPERIDOL 5 MG TABLET PO SCH ×4 (08:26→20:00)
[2018-08-30] MEDS: ASCORBIC ACID 500 MG TABLET PO SCH ×2 (08:26→17:42)
[2018-08-30] MEDS: ASPIRIN 81 MG TAB.CHEW PO SCH (08:26)
[2018-08-30] MEDS: FERROUS SULFATE 325 MG TABEC PO SCH (08:26)
[2018-08-30] MEDS: OXCARBAZEPINE 300 MG TABLET PO SCH ×2 (08:26→17:42)
[2018-08-30] MEDS ORDERED: LORAZEPAM 2 MG/1 ML VIAL IM ONE (11:45)
[2018-08-30] MEDS ORDERED: HALOPERIDOL LACTATE 5 MG/1 ML VIAL IM ONE (11:45)
[2018-08-30] MEDS ORDERED: diphenhydrAMINE 50 MG/1 ML VIAL IM ONE (11:45)
[2018-08-30 16:25] LABS: BASOPHILS # (AUTO) 0.1 K/uL (0.0-8.0); BASOPHILS % (AUTO) 1.2 % (0.0-2.0); EOSINOPHILS # (AUTO) 0.2 K/uL (0.0-0.7); EOSINOPHILS % (AUTO) 2.1 % (0.0-7.0); HEMATOCRIT 37.7 % (31.2-41.9); HEMOGLOBIN 12.8 g/dL (10.9-14.3); LYMPHOCYTES # (AUTO) 3.1 K/uL (20.0-40.0); LYMPHOCYTES % (AUTO) 32.9 % (20.5-51.5); MEAN CORPUSCULAR HEMOGLOBIN 29.1 uug (24.7-32.8); MEAN CORPUSCULAR HGB CONC 34 g/dL (32.3-35.6); MONOCYTES # (AUTO) 0.6 K/uL (2.0-10.0); MONOCYTES % (AUTO) 6.7 % (0.0-11.0); NEUTROPHILS # (AUTO) 5.5 K/uL (1.8-8.9); NEUTROPHILS % (AUTO) 57.1 % (38.5-71.5); PLATELET COUNT (AUTO) 265 K/uL (179-408); RED BLOOD CELL COUNT(AUTO) 4.38 MIL/uL (3.63-4.92); WHITE BLOOD COUNT (AUTO) 9.5 K/uL (3.8-11.8)
[2018-08-30 16:31] LABS: BILIRUBIN,TOTAL 0.2 mg/dL (0.2-1.0); CREATININE 0.6 mg/dL (0.6-1.3); POTASSIUM 4.3 mmol/L (3.5-5.1); TOTAL PROTEIN, SERUM 7.7 g/dL (6.4-8.2)
[2018-08-30] MEDS: CLONAZEPAM 0.5 MG TABLET PO SCH (17:42)
[2018-08-30] MEDS: BENZTROPINE MESYLATE 1 MG TABLET PO SCH (17:42)
[2018-08-30 20:05] VITALS: BP 114/70
[2018-08-30] MEDS: SENNOSIDES 1 TABLET PO SCH (21:00)
[2018-08-30] MEDS: ATORVASTATIN 40 MG TABLET PO SCH (21:00)
[2018-08-31] MEDS: LEVOTHYROXINE SODIUM 100 MCG TABLET PO SCH (06:14)
[2018-08-31] MEDS: PANTOPRAZOLE SODIUM 40 MG TABLET.DR PO SCH (06:15)
[2018-08-31 08:00] VITALS: BP 118/70
[2018-08-31] MEDS: CLONAZEPAM 0.5 MG TABLET PO SCH ×3 (08:11→16:09)
[2018-08-31] MEDS: HALOPERIDOL 5 MG TABLET PO SCH ×4 (08:11→21:00)
[2018-08-31] MEDS: ASCORBIC ACID 500 MG TABLET PO SCH ×2 (08:11→16:09)
[2018-08-31] MEDS: METFORMIN HCL 500 MG TABLET PO SCH ×2 (08:11→17:02)
[2018-08-31] MEDS: OXCARBAZEPINE 300 MG TABLET PO SCH ×2 (08:11→16:09)
[2018-08-31] MEDS: FERROUS SULFATE 325 MG TABEC PO SCH (08:11)
[2018-08-31] MEDS: LEVETIRACETAM 500 MG TABLET PO SCH ×2 (08:11→20:59)
[2018-08-31] MEDS: MULTIVITAMINS,THERAPEUTIC TABLET PO SCH (08:11)
[2018-08-31] MEDS: BENZTROPINE MESYLATE 1 MG TABLET PO SCH ×2 (08:11→16:09)
[2018-08-31] MEDS: ASPIRIN 81 MG TAB.CHEW PO SCH (08:12)
[2018-08-31] MEDS: ACETAMINOPHEN 325 MG TABLET PO PRN (14:06)
[2018-08-31 16:00] VITALS: BP 151/104
[2018-08-31 20:14] VITALS: BP 115/63
[2018-08-31] MEDS: SENNOSIDES 1 TABLET PO SCH (20:59)
[2018-08-31] MEDS: ATORVASTATIN 40 MG TABLET PO SCH (21:00)
[2018-08-31] MEDS: TEMAZEPAM 7.5 MG CAPSULE PO PRN (22:43)
[2018-09-01] MEDS: PANTOPRAZOLE SODIUM 40 MG TABLET.DR PO SCH (06:11)
[2018-09-01] MEDS: LEVOTHYROXINE SODIUM 100 MCG TABLET PO SCH (06:12)
[2018-09-01 07:30] VITALS: BP 131/82
[2018-09-01] MEDS: LEVETIRACETAM 500 MG TABLET PO SCH ×2 (08:18→21:16)
[2018-09-01] MEDS: ASCORBIC ACID 500 MG TABLET PO SCH ×2 (08:18→16:03)
[2018-09-01] MEDS: CLONAZEPAM 0.5 MG TABLET PO SCH ×3 (08:18→16:03)
[2018-09-01] MEDS: METFORMIN HCL 500 MG TABLET PO SCH ×2 (08:18→17:05)
[2018-09-01] MEDS: BENZTROPINE MESYLATE 1 MG TABLET PO SCH ×2 (08:18→16:05)
[2018-09-01] MEDS: MULTIVITAMINS,THERAPEUTIC TABLET PO SCH (08:18)
[2018-09-01] MEDS: ASPIRIN 81 MG TAB.CHEW PO SCH (08:18)
[2018-09-01] MEDS: HALOPERIDOL 5 MG TABLET PO SCH ×4 (08:18→20:00)
[2018-09-01] MEDS: FERROUS SULFATE 325 MG TABEC PO SCH (08:18)
[2018-09-01] MEDS: OXCARBAZEPINE 300 MG TABLET PO SCH ×2 (08:18→16:03)
[2018-09-01 16:00] VITALS: BP 134/79
[2018-09-01] MEDS ORDERED: BENZTROPINE MESYLATE 2 MG/2 ML AMPUL IM ONE (16:00)
[2018-09-01] MEDS ORDERED: HALOPERIDOL LACTATE 5 MG/1 ML VIAL IM ONE (16:00)
[2018-09-01] MEDS ORDERED: LORAZEPAM 2 MG/1 ML VIAL IM ONE (16:00)
[2018-09-01] MEDS: ACETAMINOPHEN 325 MG TABLET PO PRN (16:03)
[2018-09-01 20:00] VITALS: BP 119/69
[2018-09-01] MEDS: SENNOSIDES 1 TABLET PO SCH (21:16)
[2018-09-01] MEDS: ATORVASTATIN 40 MG TABLET PO SCH (21:16)
[2018-09-02] MEDS: PANTOPRAZOLE SODIUM 40 MG TABLET.DR PO SCH (07:00)
[2018-09-02] MEDS: LEVOTHYROXINE SODIUM 100 MCG TABLET PO SCH (07:00)
[2018-09-02 07:30] VITALS: BP 86/50
[2018-09-02] MEDS: OXCARBAZEPINE 300 MG TABLET PO SCH (08:17)
[2018-09-02] MEDS: HALOPERIDOL 5 MG TABLET PO SCH ×3 (08:18→16:24)
[2018-09-02] MEDS: METFORMIN HCL 500 MG TABLET PO SCH ×2 (08:18→17:35)
[2018-09-02] MEDS: FERROUS SULFATE 325 MG TABEC PO SCH (08:18)
[2018-09-02] MEDS: ASPIRIN 81 MG TAB.CHEW PO SCH (08:18)
[2018-09-02] MEDS: MULTIVITAMINS,THERAPEUTIC TABLET PO SCH (08:18)
[2018-09-02] MEDS: CLONAZEPAM 0.5 MG TABLET PO SCH ×2 (08:18→12:10)
[2018-09-02] MEDS: LEVETIRACETAM 500 MG TABLET PO SCH ×2 (08:18→20:07)
[2018-09-02] MEDS: BENZTROPINE MESYLATE 1 MG TABLET PO SCH (08:18)
[2018-09-02] MEDS: ASCORBIC ACID 500 MG TABLET PO SCH ×2 (08:18→16:24)
[2018-09-02 11:44] LABS: BASOPHILS # (AUTO) 0.1 K/uL (0.0-8.0); BASOPHILS % (AUTO) 0.8 % (0.0-2.0); EOSINOPHILS # (AUTO) 0.1 K/uL (0.0-0.7); EOSINOPHILS % (AUTO) 1.5 % (0.0-7.0); HEMATOCRIT 35.1 % (31.2-41.9); HEMOGLOBIN 12.1 g/dL (10.9-14.3); LYMPHOCYTES # (AUTO) 1.5 K/uL (20.0-40.0); LYMPHOCYTES % (AUTO) 15.8 % (20.5-51.5); MEAN CORPUSCULAR HEMOGLOBIN 29.5 uug (24.7-32.8); MEAN CORPUSCULAR HGB CONC 34 g/dL (32.3-35.6); MEAN CORPUSCULAR VOLUME 85.9 fL (75.5-95.3); MONOCYTES # (AUTO) 0.9 K/uL (2.0-10.0); MONOCYTES % (AUTO) 9.6 % (0.0-11.0); NEUTROPHILS # (AUTO) 6.8 K/uL (1.8-8.9); NEUTROPHILS % (AUTO) 72.3 % (38.5-71.5); PLATELET COUNT (AUTO) 233 K/uL (179-408); RED BLOOD CELL COUNT(AUTO) 4.09 MIL/uL (3.63-4.92); WHITE BLOOD COUNT (AUTO) 9.4 K/uL (3.8-11.8)
[2018-09-02 12:04] LABS: BILIRUBIN,TOTAL 0.3 mg/dL (0.2-1.0); CREATININE 0.5 mg/dL (0.6-1.3); POTASSIUM 4.1 mmol/L (3.5-5.1); TOTAL PROTEIN, SERUM 6.9 g/dL (6.4-8.2)
[2018-09-02 13:33] LABS: *BILIRUBIN,URIN NEGATIVE (NEGATIVE); *BLOOD, URINE NEGATIVE (NEGATIVE); *CLARITY,URINE CLEAR (CLEAR); *COLOR,URINE YELLOW (YELLOW); *KETONES,URINE NEGATIVE (NEGATIVE); *UROBILINOGEN,URINE 0.2 E.U./dl (NORMAL); LEUKOCYTE ESTERASE ,URINE NEGATIVE (NEGATIVE); NITRITE, URINE NEGATIVE (NEGATIVE); UGLUCOSE NEGATIVE (NEGATIVE)
[2018-09-02] MEDS: busPIRone 5 MG TABLET PO SCH ×2 (14:01→16:24)
[2018-09-02 15:05] VITALS: BP 99/55
[2018-09-02] MEDS: BENZTROPINE MESYLATE 0.5 MG TABLET PO SCH (16:24)
[2018-09-02] MEDS ORDERED: BENZTROPINE MESYLATE 1 MG TABLET PO SCH (17:00)
[2018-09-02 20:00] VITALS: BP 98/56
[2018-09-02] MEDS ORDERED: OLANZAPINE 5 MG TABLET PO SCH (20:00)
[2018-09-02] MEDS: SENNOSIDES 1 TABLET PO SCH (20:07)
[2018-09-02] MEDS: ATORVASTATIN 40 MG TABLET PO SCH (20:07)
[2018-09-02] MEDS: TEMAZEPAM 7.5 MG CAPSULE PO PRN (20:28)
[2018-09-03] MEDS: PANTOPRAZOLE SODIUM 40 MG TABLET.DR PO SCH (06:07)
[2018-09-03] MEDS: LEVOTHYROXINE SODIUM 100 MCG TABLET PO SCH (06:07)
[2018-09-03 07:30] VITALS: BP 121/72
[2018-09-03] MEDS: METFORMIN HCL 500 MG TABLET PO SCH ×2 (07:45→17:00)
[2018-09-03] MEDS: HALOPERIDOL 5 MG TABLET PO SCH ×2 (07:45→12:09)
[2018-09-03] MEDS: ASCORBIC ACID 500 MG TABLET PO SCH ×2 (08:01→16:01)
[2018-09-03] MEDS: FERROUS SULFATE 325 MG TABEC PO SCH (08:01)
[2018-09-03] MEDS: ASPIRIN 81 MG TAB.CHEW PO SCH (08:01)
[2018-09-03] MEDS: LEVETIRACETAM 500 MG TABLET PO SCH ×2 (08:01→20:15)
[2018-09-03] MEDS: busPIRone 5 MG TABLET PO SCH ×3 (08:02→16:01)
[2018-09-03] MEDS: BENZTROPINE MESYLATE 0.5 MG TABLET PO SCH ×3 (08:02→16:01)
[2018-09-03] MEDS: MULTIVITAMINS,THERAPEUTIC TABLET PO SCH (08:02)
[2018-09-03] MEDS ORDERED: OXCARBAZEPINE 300 MG TABLET PO SCH (09:00)
[2018-09-03] MEDS ORDERED: LORAZEPAM 2 MG/1 ML VIAL IM ONE (11:30)
[2018-09-03] MEDS ORDERED: HALOPERIDOL LACTATE 5 MG/1 ML VIAL IM ONE (11:30)
[2018-09-03] MEDS ORDERED: BENZTROPINE MESYLATE 2 MG/2 ML AMPUL IM ONE (11:30)
[2018-09-03] MEDS: risperiDONE 1 MG TABLET PO SCH ×2 (13:19→16:01)
[2018-09-03 15:12] VITALS: BP 121/61
[2018-09-03] MEDS: OLANZAPINE 2.5 MG TABLET PO SCH (16:01)
[2018-09-03] MEDS ORDERED: OLANZAPINE 5 MG TABLET PO SCH (17:00)
[2018-09-03 19:40] VITALS: BP 118/72
[2018-09-03] MEDS: OLANZAPINE ZYDIS 5 MG TAB.RAPDIS PO PRN (20:20)
[2018-09-03] MEDS: SENNOSIDES 1 TABLET PO SCH (20:21)
[2018-09-03] MEDS: ATORVASTATIN 40 MG TABLET PO SCH (20:25)
[2018-09-03] MEDS: TEMAZEPAM 7.5 MG CAPSULE PO PRN (23:21)
[2018-09-04] MEDS ORDERED: HALOPERIDOL LACTATE 5 MG/1 ML VIAL IM STA (02:03)
[2018-09-04] MEDS ORDERED: LORAZEPAM 2 MG/1 ML VIAL IM STA (02:03)
[2018-09-04] MEDS ORDERED: BENZTROPINE MESYLATE 2 MG/2 ML AMPUL IM STA (02:03)
[2018-09-04] MEDS: OLANZAPINE ZYDIS 5 MG TAB.RAPDIS PO PRN ×2 (04:03→15:19)
[2018-09-04] MEDS: LEVOTHYROXINE SODIUM 100 MCG TABLET PO SCH (06:13)
[2018-09-04] MEDS: PANTOPRAZOLE SODIUM 40 MG TABLET.DR PO SCH (06:13)
[2018-09-04 07:30] VITALS: BP 125/74
[2018-09-04] MEDS: METFORMIN HCL 500 MG TABLET PO SCH ×2 (08:06→17:07)
[2018-09-04] MEDS: busPIRone 5 MG TABLET PO SCH (08:06)
[2018-09-04] MEDS: ASCORBIC ACID 500 MG TABLET PO SCH ×2 (08:06→16:37)
[2018-09-04] MEDS: LEVETIRACETAM 500 MG TABLET PO SCH ×2 (08:06→20:12)
[2018-09-04] MEDS: FERROUS SULFATE 325 MG TABEC PO SCH (08:06)
[2018-09-04] MEDS: MULTIVITAMINS,THERAPEUTIC TABLET PO SCH (08:06)
[2018-09-04] MEDS: OLANZAPINE 2.5 MG TABLET PO SCH ×3 (08:06→16:36)
[2018-09-04] MEDS: risperiDONE 1 MG TABLET PO SCH ×3 (08:06→16:36)
[2018-09-04] MEDS: BENZTROPINE MESYLATE 0.5 MG TABLET PO SCH ×3 (08:07→16:36)
[2018-09-04] MEDS: ASPIRIN 81 MG TAB.CHEW PO SCH (08:07)
[2018-09-04 11:14] LABS: BASOPHILS % (AUTO) 0.4 % (0.0-2.0); EOSINOPHILS # (AUTO) 0.1 K/uL (0.0-0.7); HEMATOCRIT 36.1 % (31.2-41.9); HEMOGLOBIN 12.3 g/dL (10.9-14.3); LYMPHOCYTES # (AUTO) 1.6 K/uL (20.0-40.0); LYMPHOCYTES % (AUTO) 23.9 % (20.5-51.5); MEAN CORPUSCULAR HEMOGLOBIN 29.6 uug (24.7-32.8); MEAN CORPUSCULAR HGB CONC 34 g/dL (32.3-35.6); MEAN CORPUSCULAR VOLUME 87.2 fL (75.5-95.3); MONOCYTES # (AUTO) 0.6 K/uL (2.0-10.0); NEUTROPHILS # (AUTO) 4.5 K/uL (1.8-8.9); NEUTROPHILS % (AUTO) 65.7 % (38.5-71.5); PLATELET COUNT (AUTO) 241 K/uL (179-408); RED BLOOD CELL COUNT(AUTO) 4.14 MIL/uL (3.63-4.92); WHITE BLOOD COUNT (AUTO) 6.9 K/uL (3.8-11.8)
[2018-09-04] MEDS ORDERED: risperiDONE 1 MG TABLET PO SCH (13:00)
[2018-09-04 15:00] VITALS: BP 120/72
[2018-09-04] MEDS: SENNOSIDES 1 TABLET PO SCH (20:12)
[2018-09-04] MEDS: ATORVASTATIN 40 MG TABLET PO SCH (20:12)
[2018-09-04 20:18] VITALS: BP 120/74
[2018-09-04] MEDS ORDERED: OLANZAPINE 2.5 MG TABLET PO SCH (21:00)
[2018-09-04] MEDS: TEMAZEPAM 7.5 MG CAPSULE PO PRN (22:17)
[2018-09-05] MEDS: LEVOTHYROXINE SODIUM 100 MCG TABLET PO SCH (06:39)
[2018-09-05] MEDS: PANTOPRAZOLE SODIUM 40 MG TABLET.DR PO SCH (06:39)
[2018-09-05 07:30] VITALS: BP 130/72
[2018-09-05] MEDS: LEVETIRACETAM 500 MG TABLET PO SCH ×2 (08:47→20:31)
[2018-09-05] MEDS: FERROUS SULFATE 325 MG TABEC PO SCH (08:47)
[2018-09-05] MEDS: ASCORBIC ACID 500 MG TABLET PO SCH ×2 (08:48→17:10)
[2018-09-05] MEDS: MULTIVITAMINS,THERAPEUTIC TABLET PO SCH (08:48)
[2018-09-05] MEDS: BENZTROPINE MESYLATE 0.5 MG TABLET PO SCH ×2 (08:48→17:10)
[2018-09-05] MEDS: risperiDONE 2 MG TABLET PO SCH ×2 (08:48→17:10)
[2018-09-05] MEDS: METFORMIN HCL 500 MG TABLET PO SCH ×2 (08:48→17:10)
[2018-09-05] MEDS: ASPIRIN 81 MG TAB.CHEW PO SCH (08:48)
[2018-09-05] MEDS ORDERED: risperiDONE 1 MG TABLET PO SCH (09:00)
[2018-09-05 16:00] VITALS: BP 126/72
[2018-09-05] MEDS ORDERED: OLANZAPINE 5 MG TABLET PO SCH ×2 (20:00→21:00)
[2018-09-05] MEDS: OLANZAPINE 2.5 MG TABLET PO SCH (20:31)
[2018-09-05] MEDS: SENNOSIDES 1 TABLET PO SCH (20:31)
[2018-09-05] MEDS: ATORVASTATIN 40 MG TABLET PO SCH (20:31)
[2018-09-05] MEDS: risperiDONE 1 MG TABLET PO SCH (20:31)
[2018-09-05 20:53] VITALS: BP 114/74
[2018-09-05] MEDS ORDERED: OLANZAPINE 2.5 MG TABLET PO SCH (21:00)
[2018-09-05] MEDS: TEMAZEPAM 7.5 MG CAPSULE PO PRN (21:53)
[2018-09-06] MEDS: OLANZAPINE ZYDIS 5 MG TAB.RAPDIS PO PRN ×2 (00:56→08:10)
[2018-09-06] MEDS: LEVOTHYROXINE SODIUM 100 MCG TABLET PO SCH (06:54)
[2018-09-06] MEDS: PANTOPRAZOLE SODIUM 40 MG TABLET.DR PO SCH (06:54)
[2018-09-06 07:30] VITALS: BP 107/80
[2018-09-06] MEDS: ASPIRIN 81 MG TAB.CHEW PO SCH (08:22)
[2018-09-06] MEDS: BENZTROPINE MESYLATE 0.5 MG TABLET PO SCH ×2 (08:22→17:53)
[2018-09-06] MEDS: FERROUS SULFATE 325 MG TABEC PO SCH (08:22)
[2018-09-06] MEDS: LEVETIRACETAM 500 MG TABLET PO SCH ×2 (08:22→20:30)
[2018-09-06] MEDS: ASCORBIC ACID 500 MG TABLET PO SCH ×2 (08:22→17:53)
[2018-09-06] MEDS: risperiDONE 2 MG TABLET PO SCH ×2 (08:25→17:53)
[2018-09-06] MEDS: MULTIVITAMINS,THERAPEUTIC TABLET PO SCH (08:25)
[2018-09-06] MEDS: METFORMIN HCL 500 MG TABLET PO SCH ×2 (08:28→17:53)
[2018-09-06 16:00] VITALS: BP 141/88
[2018-09-06 20:23] VITALS: BP 164/82
[2018-09-06] MEDS: SENNOSIDES 1 TABLET PO SCH (20:30)
[2018-09-06] MEDS: OLANZAPINE 2.5 MG TABLET PO SCH (20:30)
[2018-09-06] MEDS: ATORVASTATIN 40 MG TABLET PO SCH (20:30)
[2018-09-06] MEDS: risperiDONE 1 MG TABLET PO SCH (20:30)
[2018-09-06] MEDS: TEMAZEPAM 7.5 MG CAPSULE PO PRN (23:36)
[2018-09-07] MEDS: OLANZAPINE ZYDIS 5 MG TAB.RAPDIS PO PRN ×2 (02:07→13:24)
[2018-09-07] MEDS: LEVOTHYROXINE SODIUM 100 MCG TABLET PO SCH (06:03)
[2018-09-07] MEDS: PANTOPRAZOLE SODIUM 40 MG TABLET.DR PO SCH (06:03)
[2018-09-07 08:00] VITALS: BP 157/81
[2018-09-07] MEDS: METFORMIN HCL 500 MG TABLET PO SCH ×2 (08:00→17:08)
[2018-09-07] MEDS: ASCORBIC ACID 500 MG TABLET PO SCH ×2 (08:15→16:51)
[2018-09-07] MEDS: MULTIVITAMINS,THERAPEUTIC TABLET PO SCH (08:15)
[2018-09-07] MEDS ORDERED: BENZTROPINE MESYLATE 2 MG/2 ML AMPUL IM ONE (08:30)
[2018-09-07] MEDS ORDERED: LORAZEPAM 2 MG/1 ML VIAL IM ONE (08:30)
[2018-09-07] MEDS ORDERED: HALOPERIDOL LACTATE 5 MG/1 ML VIAL IM ONE (08:30)
[2018-09-07] MEDS: ASPIRIN 81 MG TAB.CHEW PO SCH (09:00)
[2018-09-07] MEDS: LEVETIRACETAM 500 MG TABLET PO SCH ×2 (09:00→20:37)
[2018-09-07] MEDS: BENZTROPINE MESYLATE 0.5 MG TABLET PO SCH ×2 (09:00→16:51)
[2018-09-07] MEDS: FERROUS SULFATE 325 MG TABEC PO SCH (09:00)
[2018-09-07] MEDS: risperiDONE 2 MG TABLET PO SCH ×2 (09:00→16:51)
[2018-09-07] MEDS: VALPROIC ACID 250 MG/5 ML LIQUID UDC PO SCH ×3 (09:15→16:51)
[2018-09-07 15:14] VITALS: BP 124/96
[2018-09-07] MEDS: OLANZAPINE 2.5 MG TABLET PO SCH (16:51)
[2018-09-07] MEDS: SENNOSIDES 1 TABLET PO SCH (20:37)
[2018-09-07] MEDS: ATORVASTATIN 40 MG TABLET PO SCH (20:37)
[2018-09-07] MEDS: risperiDONE 1 MG TABLET PO SCH (20:37)
[2018-09-07 20:56] VITALS: BP 123/61
[2018-09-08] MEDS: LEVOTHYROXINE SODIUM 100 MCG TABLET PO SCH (06:28)
[2018-09-08] MEDS: PANTOPRAZOLE SODIUM 40 MG TABLET.DR PO SCH (06:29)
[2018-09-08 07:30] VITALS: BP 146/68
[2018-09-08] MEDS: METFORMIN HCL 500 MG TABLET PO SCH ×2 (09:14→18:09)
[2018-09-08] MEDS: FERROUS SULFATE 325 MG TABEC PO SCH (09:14)
[2018-09-08] MEDS: LEVETIRACETAM 500 MG TABLET PO SCH ×2 (09:14→20:45)
[2018-09-08] MEDS: BENZTROPINE MESYLATE 0.5 MG TABLET PO SCH ×2 (09:14→18:10)
[2018-09-08] MEDS: ASPIRIN 81 MG TAB.CHEW PO SCH (09:14)
[2018-09-08] MEDS: OLANZAPINE 2.5 MG TABLET PO SCH ×2 (09:15→18:09)
[2018-09-08] MEDS: ASCORBIC ACID 500 MG TABLET PO SCH ×2 (09:15→18:10)
[2018-09-08] MEDS: MULTIVITAMINS,THERAPEUTIC TABLET PO SCH (09:15)
[2018-09-08] MEDS: risperiDONE 2 MG TABLET PO SCH ×2 (09:15→18:09)
[2018-09-08] MEDS: VALPROIC ACID 250 MG/5 ML LIQUID UDC PO SCH ×3 (09:15→18:10)
[2018-09-08 15:04] VITALS: BP 129/75
[2018-09-08 20:00] VITALS: BP 122/76
[2018-09-08] MEDS: TEMAZEPAM 7.5 MG CAPSULE PO PRN (20:45)
[2018-09-08] MEDS: ATORVASTATIN 40 MG TABLET PO SCH (20:46)
[2018-09-08] MEDS: SENNOSIDES 1 TABLET PO SCH (20:46)
[2018-09-08] MEDS: risperiDONE 1 MG TABLET PO SCH (20:46)
[2018-09-09] MEDS: LEVOTHYROXINE SODIUM 100 MCG TABLET PO SCH (06:30)
[2018-09-09] MEDS: PANTOPRAZOLE SODIUM 40 MG TABLET.DR PO SCH (06:30)
[2018-09-09 07:30] VITALS: BP 119/75
[2018-09-09] MEDS: VALPROIC ACID 250 MG/5 ML LIQUID UDC PO SCH ×2 (08:22→12:22)
[2018-09-09] MEDS: BENZTROPINE MESYLATE 0.5 MG TABLET PO SCH ×3 (08:23→17:39)
[2018-09-09] MEDS: FERROUS SULFATE 325 MG TABEC PO SCH (08:23)
[2018-09-09] MEDS: ASPIRIN 81 MG TAB.CHEW PO SCH (08:23)
[2018-09-09] MEDS: risperiDONE 2 MG TABLET PO SCH ×4 (08:23→21:04)
[2018-09-09] MEDS: MULTIVITAMINS,THERAPEUTIC TABLET PO SCH (08:23)
[2018-09-09] MEDS: ASCORBIC ACID 500 MG TABLET PO SCH ×2 (08:23→17:39)
[2018-09-09] MEDS: LEVETIRACETAM 500 MG TABLET PO SCH ×2 (08:24→21:04)
[2018-09-09] MEDS: METFORMIN HCL 500 MG TABLET PO SCH ×2 (08:24→17:39)
[2018-09-09] MEDS: OLANZAPINE 2.5 MG TABLET PO SCH (10:00)
[2018-09-09] MEDS ORDERED: PNEUMOCOCCAL 23-VAL P-SAC VAC 0.5 ML VIAL IM ONE (11:00)
[2018-09-09] MEDS: OLANZAPINE ZYDIS 5 MG TAB.RAPDIS PO PRN ×2 (12:22→19:54)
[2018-09-09 15:02] VITALS: BP_SYST 111; BP_SYST 126; BP_DIAS 106; BP_DIAS 80
[2018-09-09] MEDS ORDERED: VALPROIC ACID 250 MG/5 ML LIQUID UDC PO SCH (17:00)
[2018-09-09] MEDS ORDERED: DIVALPROEX ER 500 MG TAB.SR.24H PO SCH (17:00)
[2018-09-09 19:54] VITALS: BP 137/74
[2018-09-09] MEDS: ATORVASTATIN 40 MG TABLET PO SCH (21:04)
[2018-09-09] MEDS: SENNOSIDES 1 TABLET PO SCH (21:04)
[2018-09-09] MEDS: TEMAZEPAM 7.5 MG CAPSULE PO PRN (23:30)
[2018-09-10] MEDS ORDERED: TEMAZEPAM 7.5 MG CAPSULE PO PRN (01:15)
[2018-09-10] MEDS: LEVOTHYROXINE SODIUM 100 MCG TABLET PO SCH (07:00)
[2018-09-10] MEDS: PANTOPRAZOLE SODIUM 40 MG TABLET.DR PO SCH (07:00)
[2018-09-10 07:30] VITALS: BP 101/67
[2018-09-10] MEDS: ASPIRIN 81 MG TAB.CHEW PO SCH (08:41)
[2018-09-10] MEDS: LEVETIRACETAM 500 MG TABLET PO SCH ×2 (08:41→21:00)
[2018-09-10] MEDS: BENZTROPINE MESYLATE 0.5 MG TABLET PO SCH ×3 (08:41→16:20)
[2018-09-10] MEDS: ASCORBIC ACID 500 MG TABLET PO SCH ×2 (08:41→16:19)
[2018-09-10] MEDS: METFORMIN HCL 500 MG TABLET PO SCH ×2 (08:41→17:05)
[2018-09-10] MEDS: MULTIVITAMINS,THERAPEUTIC TABLET PO SCH (08:41)
[2018-09-10] MEDS: FERROUS SULFATE 325 MG TABEC PO SCH (08:42)
[2018-09-10] MEDS: risperiDONE 2 MG TABLET PO SCH ×4 (08:42→21:00)
[2018-09-10] MEDS: OLANZAPINE ZYDIS 5 MG TAB.RAPDIS PO PRN ×2 (10:25→21:38)
[2018-09-10] MEDS ORDERED: OLANZAPINE 10 MG VIAL IM ONE ×2 (14:00→22:00)
[2018-09-10] MEDS: OLANZAPINE 2.5 MG TABLET PO SCH (14:07)
[2018-09-10 15:35] VITALS: BP 121/74
[2018-09-10 19:56] VITALS: BP 113/69
[2018-09-10] MEDS: SENNOSIDES 1 TABLET PO SCH (21:00)
[2018-09-10] MEDS: ATORVASTATIN 40 MG TABLET PO SCH (21:00)
[2018-09-11] MEDS: LEVOTHYROXINE SODIUM 100 MCG TABLET PO SCH (06:08)
[2018-09-11] MEDS: PANTOPRAZOLE SODIUM 40 MG TABLET.DR PO SCH (06:08)
[2018-09-11 07:30] VITALS: BP 150/89
[2018-09-11] MEDS: FERROUS SULFATE 325 MG TABEC PO SCH (09:22)
[2018-09-11] MEDS: MULTIVITAMINS,THERAPEUTIC TABLET PO SCH (09:22)
[2018-09-11] MEDS: risperiDONE 2 MG TABLET PO SCH ×3 (09:22→16:00)
[2018-09-11] MEDS: METFORMIN HCL 500 MG TABLET PO SCH ×2 (09:22→17:00)
[2018-09-11] MEDS: LEVETIRACETAM 500 MG TABLET PO SCH ×2 (09:22→20:03)
[2018-09-11] MEDS: ASCORBIC ACID 500 MG TABLET PO SCH ×2 (09:22→16:00)
[2018-09-11] MEDS: ASPIRIN 81 MG TAB.CHEW PO SCH (09:22)
[2018-09-11] MEDS: BENZTROPINE MESYLATE 0.5 MG TABLET PO SCH ×3 (09:22→16:00)
[2018-09-11] MEDS: OLANZAPINE 2.5 MG TABLET PO SCH ×2 (09:22→16:00)
[2018-09-11 16:00] VITALS: BP 121/73
[2018-09-11] MEDS: ATORVASTATIN 40 MG TABLET PO SCH (20:04)
[2018-09-11] MEDS: SENNOSIDES 1 TABLET PO SCH (20:04)
[2018-09-11 20:40] VITALS: BP 118/71
[2018-09-11] MEDS ORDERED: risperiDONE 2 MG TABLET PO SCH (21:00)
[2018-09-12] MEDS: LEVOTHYROXINE SODIUM 100 MCG TABLET PO SCH (06:23)
[2018-09-12] MEDS: PANTOPRAZOLE SODIUM 40 MG TABLET.DR PO SCH (06:23)
[2018-09-12 07:30] VITALS: BP 125/80
[2018-09-12] MEDS: FERROUS SULFATE 325 MG TABEC PO SCH (08:26)
[2018-09-12] MEDS: ASCORBIC ACID 500 MG TABLET PO SCH ×2 (08:26→16:07)
[2018-09-12] MEDS: risperiDONE 2 MG TABLET PO SCH ×3 (08:27→16:08)
[2018-09-12] MEDS: ASPIRIN 81 MG TAB.CHEW PO SCH (08:27)
[2018-09-12] MEDS: OLANZAPINE 2.5 MG TABLET PO SCH (08:27)
[2018-09-12] MEDS: MULTIVITAMINS,THERAPEUTIC TABLET PO SCH (08:27)
[2018-09-12] MEDS: METFORMIN HCL 500 MG TABLET PO SCH ×2 (08:27→18:18)
[2018-09-12] MEDS: BENZTROPINE MESYLATE 0.5 MG TABLET PO SCH ×4 (08:27→16:08)
[2018-09-12] MEDS: LEVETIRACETAM 500 MG TABLET PO SCH ×2 (08:27→21:14)
[2018-09-12] MEDS: OLANZAPINE ZYDIS 5 MG TAB.RAPDIS PO PRN ×3 (08:53→21:14)
[2018-09-12 16:02] VITALS: BP 142/73
[2018-09-12] MEDS ORDERED: OLANZAPINE 5 MG TABLET PO SCH ×2 (20:00→21:00)
[2018-09-12 20:51] VITALS: BP 106/62
[2018-09-12] MEDS ORDERED: OLANZAPINE 2.5 MG TABLET PO SCH (21:00)
[2018-09-12] MEDS: ATORVASTATIN 40 MG TABLET PO SCH (21:14)
[2018-09-12] MEDS: SENNOSIDES 1 TABLET PO SCH (21:15)
[2018-09-13] MEDS: PANTOPRAZOLE SODIUM 40 MG TABLET.DR PO SCH (06:25)
[2018-09-13] MEDS: LEVOTHYROXINE SODIUM 100 MCG TABLET PO SCH (06:25)
[2018-09-13 07:30] VITALS: BP 157/84
[2018-09-13] MEDS: METFORMIN HCL 500 MG TABLET PO SCH ×2 (08:24→17:03)
[2018-09-13] MEDS: risperiDONE 2 MG TABLET PO SCH ×3 (08:24→17:03)
[2018-09-13] MEDS: OLANZAPINE ZYDIS 5 MG TAB.RAPDIS PO PRN (08:24)
[2018-09-13] MEDS: MULTIVITAMINS,THERAPEUTIC TABLET PO SCH (08:24)
[2018-09-13] MEDS: LEVETIRACETAM 500 MG TABLET PO SCH ×2 (08:24→20:18)
[2018-09-13] MEDS: BENZTROPINE MESYLATE 0.5 MG TABLET PO SCH ×3 (08:24→17:03)
[2018-09-13] MEDS: ASPIRIN 81 MG TAB.CHEW PO SCH (08:24)
[2018-09-13] MEDS: ASCORBIC ACID 500 MG TABLET PO SCH ×2 (08:24→17:03)
[2018-09-13] MEDS: FERROUS SULFATE 325 MG TABEC PO SCH (08:24)
[2018-09-13] MEDS: OLANZAPINE 5 MG TABLET PO SCH ×2 (09:45→20:19)
[2018-09-13 10:07] LABS: BILIRUBIN,TOTAL 0.5 mg/dL (0.2-1.0); CREATININE 0.6 mg/dL (0.6-1.3); POTASSIUM 3.8 mmol/L (3.5-5.1); TOTAL PROTEIN, SERUM 7.7 g/dL (6.4-8.2)
[2018-09-13 10:16] LABS: BASOPHILS # (AUTO) 0.1 K/uL (0.0-8.0); BASOPHILS % (AUTO) 0.9 % (0.0-2.0); EOSINOPHILS # (AUTO) 0.2 K/uL (0.0-0.7); EOSINOPHILS % (AUTO) 2.3 % (0.0-7.0); HEMATOCRIT 36.9 % (31.2-41.9); HEMOGLOBIN 12.5 g/dL (10.9-14.3); LYMPHOCYTES # (AUTO) 1.6 K/uL (20.0-40.0); LYMPHOCYTES % (AUTO) 21.6 % (20.5-51.5); MEAN CORPUSCULAR HEMOGLOBIN 29.6 uug (24.7-32.8); MEAN CORPUSCULAR HGB CONC 34 g/dL (32.3-35.6); MEAN CORPUSCULAR VOLUME 87.5 fL (75.5-95.3); MONOCYTES # (AUTO) 0.6 K/uL (2.0-10.0); MONOCYTES % (AUTO) 8.1 % (0.0-11.0); NEUTROPHILS # (AUTO) 4.9 K/uL (1.8-8.9); NEUTROPHILS % (AUTO) 67.1 % (38.5-71.5); PLATELET COUNT (AUTO) 300 K/uL (179-408); RED BLOOD CELL COUNT(AUTO) 4.22 MIL/uL (3.63-4.92); WHITE BLOOD COUNT (AUTO) 7.3 K/uL (3.8-11.8)
[2018-09-13 16:00] VITALS: BP 141/79
[2018-09-13 19:44] VITALS: BP 132/78
[2018-09-13] MEDS: SENNOSIDES 1 TABLET PO SCH (20:18)
[2018-09-13] MEDS: ATORVASTATIN 40 MG TABLET PO SCH (20:18)
[2018-09-14] MEDS: LEVOTHYROXINE SODIUM 100 MCG TABLET PO SCH (06:33)
[2018-09-14] MEDS: PANTOPRAZOLE SODIUM 40 MG TABLET.DR PO SCH (06:33)
[2018-09-14 07:30] VITALS: BP 147/83
[2018-09-14] MEDS: METFORMIN HCL 500 MG TABLET PO SCH ×2 (07:59→17:17)
[2018-09-14] MEDS: ASCORBIC ACID 500 MG TABLET PO SCH ×2 (08:00→16:09)
[2018-09-14] MEDS: BENZTROPINE MESYLATE 0.5 MG TABLET PO SCH ×3 (08:00→16:09)
[2018-09-14] MEDS: risperiDONE 2 MG TABLET PO SCH ×3 (08:00→16:09)
[2018-09-14] MEDS: OLANZAPINE 5 MG TABLET PO SCH ×2 (08:00→20:54)
[2018-09-14] MEDS: LEVETIRACETAM 500 MG TABLET PO SCH ×2 (08:00→20:52)
[2018-09-14] MEDS: FERROUS SULFATE 325 MG TABEC PO SCH (08:00)
[2018-09-14] MEDS: ASPIRIN 81 MG TAB.CHEW PO SCH (08:00)
[2018-09-14] MEDS: MULTIVITAMINS,THERAPEUTIC TABLET PO SCH (08:00)
[2018-09-14 16:00] VITALS: BP 114/68
[2018-09-14 19:50] VITALS: BP 120/77
[2018-09-14] MEDS: ATORVASTATIN 40 MG TABLET PO SCH (20:52)
[2018-09-14] MEDS: SENNOSIDES 1 TABLET PO SCH (20:52)
[2018-09-15] MEDS: LEVOTHYROXINE SODIUM 100 MCG TABLET PO SCH (06:29)
[2018-09-15] MEDS: PANTOPRAZOLE SODIUM 40 MG TABLET.DR PO SCH (06:29)
[2018-09-15 07:42] VITALS: BP 143/77
[2018-09-15] MEDS: METFORMIN HCL 500 MG TABLET PO SCH ×2 (08:23→17:13)
[2018-09-15] MEDS: OLANZAPINE 5 MG TABLET PO SCH ×2 (08:23→20:24)
[2018-09-15] MEDS: LEVETIRACETAM 500 MG TABLET PO SCH ×2 (08:23→20:24)
[2018-09-15] MEDS: MULTIVITAMINS,THERAPEUTIC TABLET PO SCH (08:23)
[2018-09-15] MEDS: ASCORBIC ACID 500 MG TABLET PO SCH ×2 (08:23→17:13)
[2018-09-15] MEDS: risperiDONE 2 MG TABLET PO SCH ×3 (08:24→17:13)
[2018-09-15] MEDS: FERROUS SULFATE 325 MG TABEC PO SCH (08:24)
[2018-09-15] MEDS: ACETAMINOPHEN 325 MG TABLET PO PRN (08:24)
[2018-09-15] MEDS: BENZTROPINE MESYLATE 0.5 MG TABLET PO SCH (08:24)
[2018-09-15] MEDS: ASPIRIN 81 MG TAB.CHEW PO SCH (08:24)
[2018-09-15 15:36] VITALS: BP 149/81
[2018-09-15 19:45] VITALS: BP 130/72
[2018-09-15] MEDS: SENNOSIDES 1 TABLET PO SCH (20:24)
[2018-09-15] MEDS: ATORVASTATIN 40 MG TABLET PO SCH (20:24)
[2018-09-16] MEDS: PANTOPRAZOLE SODIUM 40 MG TABLET.DR PO SCH (06:35)
[2018-09-16] MEDS: LEVOTHYROXINE SODIUM 100 MCG TABLET PO SCH (06:35)
[2018-09-16] MEDS: ASCORBIC ACID 500 MG TABLET PO SCH ×2 (08:20→16:58)
[2018-09-16] MEDS: ASPIRIN 81 MG TAB.CHEW PO SCH (08:21)
[2018-09-16] MEDS: METFORMIN HCL 500 MG TABLET PO SCH ×2 (08:21→17:00)
[2018-09-16] MEDS: MULTIVITAMINS,THERAPEUTIC TABLET PO SCH (08:21)
[2018-09-16] MEDS: risperiDONE 2 MG TABLET PO SCH ×3 (08:21→16:58)
[2018-09-16] MEDS: LEVETIRACETAM 500 MG TABLET PO SCH ×2 (08:21→20:12)
[2018-09-16] MEDS: OLANZAPINE 5 MG TABLET PO SCH ×3 (08:21→20:12)
[2018-09-16] MEDS: FERROUS SULFATE 325 MG TABEC PO SCH (08:21)
[2018-09-16 16:00] VITALS: BP 105/71
[2018-09-16 19:46] VITALS: BP 121/75
[2018-09-16] MEDS: ATORVASTATIN 40 MG TABLET PO SCH (20:12)
[2018-09-16] MEDS: SENNOSIDES 1 TABLET PO SCH (20:12)
[2018-09-17] MEDS: LEVOTHYROXINE SODIUM 100 MCG TABLET PO SCH (06:26)
[2018-09-17] MEDS: PANTOPRAZOLE SODIUM 40 MG TABLET.DR PO SCH (06:27)
[2018-09-17 07:30] VITALS: BP 118/73
[2018-09-17] MEDS: OLANZAPINE 5 MG TABLET PO SCH ×2 (08:26→12:04)
[2018-09-17] MEDS: FERROUS SULFATE 325 MG TABEC PO SCH (08:26)
[2018-09-17] MEDS: ASCORBIC ACID 500 MG TABLET PO SCH (08:26)
[2018-09-17] MEDS: LEVETIRACETAM 500 MG TABLET PO SCH (08:27)
[2018-09-17] MEDS: METFORMIN HCL 500 MG TABLET PO SCH (08:27)
[2018-09-17] MEDS: ASPIRIN 81 MG TAB.CHEW PO SCH (08:27)
[2018-09-17] MEDS: risperiDONE 2 MG TABLET PO SCH ×2 (08:29→12:04)
[2018-09-17] MEDS: MULTIVITAMINS,THERAPEUTIC TABLET PO SCH (08:29)
[2018-09-17] MEDS ORDERED: OLANZAPINE 5 MG TABLET PO SCH (13:00)
[2018-09-17 15:14] VITALS: BP 127/78
== END 2018-09-17 15:25 | DRG 885 ==
LOC: ER 18:11 → GPS 21:17
PROVIDERS: ADMIT Psychiatry & Neurology Psychosomatic Medicine; ATTEND Nurse Practitioner Acute Care
DX: F20.9 Schizophrenia, unspecified (principal); F03.91 Unspecified dementia, unspecified severity, with behavioral disturbance; G40.909 Epilepsy, unspecified, not intractable, without status epilepticus; E78.5 Hyperlipidemia, unspecified; G20 Parkinson's disease; F60.3 Borderline personality disorder; F89 Unspecified disorder of psychological development; E66.9 Obesity, unspecified; Z68.28 Body mass index [BMI] 28.0-28.9, adult; I10 Essential (primary) hypertension; E83.42 Hypomagnesemia; E03.9 Hypothyroidism, unspecified; Z79.890 Hormone replacement therapy; E11.9 Type 2 diabetes mellitus without complications; Z79.4 Long term (current) use of insulin; Z79.899 Other long term (current) drug therapy; F41.9 Anxiety disorder, unspecified; F32.9 Major depressive disorder, single episode, unspecified
CPT/HCPCS: 36415; 71046; 80164; 83735; 84100; 84443; 85025; 87086; 90732; 93005; A4663; J0515; J1200; J1630; J2060; J2358; J3490